=== PATIENT | male | born 1960 | race Caucasian/White ===

== ENCOUNTER → 2020-03-14 | Day surgery (SDC) | payer BC ==
[2020-03-13 08:35] VITALS: BMI 40.6
[~2020-03-14] MED LIST: LACTATED RINGERS 1,000 ML IV SCH; LIDOCAINE 1% (10MG/ML) FOR IV START INTRADERMA ONE; MIDAZOLAM 2 MG/2 ML VIAL ONE; PROPOFOL 10 MG/ML 20 ML VIAL IV ONE; fentaNYL (PF) 50 MCG/ML 2 ML AMP ONE
[2020-03-14 08:37] VITALS: TEMP 97
[2020-03-14 10:27] VITALS: RESP 17
[2020-03-14 10:36] VITALS: BP 153/90; PULSE 69
--- NOTE | 2020-03-14 10:38 | P.PCN ---
Date of Procedure: 03/14/20 Procedure(s) Performed: BRIEF HISTORY: Patient is a 59-year-old pleasant male scheduled for an elective colonoscopy as a part of screening for colorectal neoplasia PROCEDURE PERFORMED: Colonoscopy with snare polypectomy. PREOPERATIVE DIAGNOSIS: Screening for colon cancer. IV sedation per Anesthesia. PROCEDURE: After informed consent was obtained, the patient, was brought into the endoscopy unit. IV sedation was administered by Anesthesia under continuous monitoring. Digital rectal examination was normal. Initially the Olympus CF-160 flexible video colonoscope was then inserted in the rectum, gradually advanced into the cecum without any difficulty. Careful examination was performed as the scope was gradually being withdrawn. Ileocecal valve and the appendiceal orifice were visualized and appeared normal. Prep was excellent. Mucosa of the cecum, ascending colon, transverse colon, descending colon, sigmoid colon, and rectum appeared normal. The proximal rectum there was a 5 mm and 1 cm polyp removed by snare polypectomy. Scattered left-sided diverticulosis seen. Impression: 5 mm and 1 cm proximal rectal polyp status post polypectomy Scattered sigmoid diverticulosis Recommendations The findings of this examination were discussed with the patient as well as a family. If the biopsy shows an adenoma he can have a repeat colonoscopy in 3 years.
== END ==
LOC: ORWHC2ENDO 08:19
PROVIDERS: ATTEND Internal Medicine Gastroenterology
DX: Z12.11 Encounter for screening for malignant neoplasm of colon (principal); K62.1 Rectal polyp; K57.30 Diverticulosis of large intestine without perforation or abscess without bleeding; I10 Essential (primary) hypertension; Z79.82 Long term (current) use of aspirin; Z79.899 Other long term (current) drug therapy; Z88.0 Allergy status to penicillin; Z90.49 Acquired absence of other specified parts of digestive tract; Z98.890 Other specified postprocedural states
CPT/HCPCS: 88305; 45385; J2250; J3010; J2704